=== PATIENT | female | born 1985 | race Hispanic/Latino ===

== ENCOUNTER 2020-06-27 07:49 | Day surgery (SDC) | payer OTHER ==
[2020-06-27 08:15] VITALS: O2SAT 100
[2020-06-27] MEDS ORDERED: Ringers Lactate 1,000 ML IV ONE (08:27)
[2020-06-27] MEDS ORDERED: CEFAZOLIN/SWI 1gm 1 GM/10 ML SYR ONE (08:27)
[2020-06-27 08:29] LABS: Specific Gravity >= 1.030 (1.005-1.030)
[2020-06-27] MEDS ORDERED: SCOPOLAMINE HYDROBROMIDE PATCH TD ONE (08:33)
[2020-06-27] MEDS ORDERED: EPINEPHRINE/PF 1 MG/ML AMP ONE ×2 (08:47→09:07)
[2020-06-27] MEDS ORDERED: ROCURONIUM 50 MG/5 ML VIAL IV ONE (08:50)
[2020-06-27] MEDS ORDERED: propofoL 200 MG/20 ML VIAL IV ONE (08:50)
[2020-06-27] MEDS ORDERED: MIDAZOLAM HCL 2 MG/2 ML INJ ONE (08:50)
[2020-06-27] MEDS ORDERED: LIDOCAINE 1% MPF 5 ML VIAL ONE (08:50)
[2020-06-27] MEDS ORDERED: FENTANYL CITR 100 MCG/2 ML ONE ×2 (08:50→10:47)
[2020-06-27] MEDS ORDERED: NA CHLORIDE 0.9% 1,000 ML ONE (09:22)
[2020-06-27] MEDS ORDERED: KETOROLAC 30 MG/ML INJ ONE (10:37)
[2020-06-27] MEDS ORDERED: dexAMETHasone 10 MG/ML VIAL ONE (10:37)
[2020-06-27] MEDS ORDERED: ONDANSETRON 4 MG/2 ML VIAL ONE (10:47)
[2020-06-27] MEDS ORDERED: MORPHINE 10 MG/ML VIAL ONE (11:47)
[2020-06-27] MEDS ORDERED: NEOSTIGMINE 1 MG/ML -5 ML ONE (11:49)
[2020-06-27] MEDS ORDERED: GLYCOPYRROLATE 0.2 MG/ML SYR ONE ×2 (11:49)
[2020-06-27] MEDS ORDERED: Mastisol Adhesive Liq ONE (12:01)
[2020-06-27] MEDS ORDERED: MEPERIDINE HCL 25 MG/ML SYR ONE (12:27)
[2020-06-27] MEDS ORDERED: CODEINE 30MG/APAP 300MG TAB ONE (13:59)
--- NOTE | 2020-06-27 14:19 | OP ---
Surgeon: Chacho Kennedy MD Hose Handler: Jacobo. Preoperative Diagnoses: Lipodystrophy, abdominal flanks, hypomastia, and scar status post breast lif t. Postoperative Diagnoses: Lipodystrophy, abdominal flanks, hypomastia, and scar status post breast li ft. Procedure Performed: Scar revision, liposuction of the abdomen, flanks, fat transfer to the right le ft breast. Anesthesia: General. Operative Note: After satisfactory anesthesia, the patient was prepped with DuraPrep from the neck d own to the midthigh including the flanks. Dry sterile drapes applied in the usual manner. A 15 blad e was used to make incision over the umbilicus previous scar, which was excised and over a nterior iliac spines bilaterally. Infusion cannula was used and the right flank had . The liposuction was performed 5 out right flank, 10 out left flank, 2 cc out the abdomen. Abdominal wou nd and midline was closed with 4-0 PDS suture. Steri-Strips were applied later. The stephanie ent then had the scars excised using the old scar and the new inframammary fold to place incisions. Skin was excised and subcutaneous tissue as needed and then the wounds were closed with layered 3-0 V icryl and 3-0 PDS. Prior to PDS closure of the breast, a 2.7 mm cannula was used to inject the fat. The fat inject in the right breast was 170, left breast was 200. . The patient tolerated procedure well and returned to Recovery. GH/MODL Voice ID: [id number] Report ID: [id number]
[2020-06-27 14:53] VITALS: BP 122/79; TEMP 98
== END 2020-06-27 14:30 | disposition home or self-care (01) ==
LOC: OR 07:49
PROVIDERS: ATTEND Specialist
PROC: 0HBV3ZZ Excision of Bilateral Breast, Percutaneous Approach (ICD-10-PCS; principal; 2020-06-27 09:00)
PROC: 0HB5XZZ Excision of Chest Skin, External Approach (ICD-10-PCS; 2020-06-27 09:00)
DX: N64.82 Hypoplasia of breast (principal); L90.5 Scar conditions and fibrosis of skin; E88.1 Lipodystrophy, not elsewhere classified
CPT/HCPCS: 81025; 15771; 15772 ×7; 17999; J2704; J0171 ×2; J2250; J3010 ×2; J1100; J2175; J2710; J0690; J7120; J7030; J2405